=== PATIENT | female | born 1955 | race Caucasian/White ===

== ENCOUNTER 2018-08-21 15:00 | Outpatient (CLI) | payer MEDICARE, OTHER ==
[~2018-08-21] VITALS: Ht 152.4 cm; Wt 80.0 kg
[~2018-08-21 15:00] MED LIST: BYSTOLIC5 MG PO; LIDODERM PATCH TP; LOTREL 10 MG-401 CAP PO; NEURONTIN800 MG/TAB PO; OMEGA-3 FISH1200 MG PO; PAMELOR75 MG PO; PRILOSEC 20MG20 MG PO; PROVENTIL0.09 MG/A1 IH; REQUIP5 MG PO; RHINOCORT0.032 MG/1 NS; RT ADVAIR 228 DISKUS IH; UNABLE; VITAMIN B-1000 MCG/T PO; VITAMIN D32000 I1 PO; ZOCOR 40MG40 MG PO
[2018-08-21 16:29] VITALS: BP 152/99; PULSE 55; TEMP 99
== END 2018-08-21 17:00 | disposition home or self-care (01) ==
LOC: EUO 15:00
DX: M81.0 Age-related osteoporosis without current pathological fracture (principal)
CPT/HCPCS: J3489

== ENCOUNTER 2019-04-24 15:42 | Inpatient (IN) | payer MEDICARE, OTHER ==
[~2019-04-24] VITALS: Ht 149.9 cm; Wt 83.9 kg
[2019-04-24 16:33] LABS: BASO # 0.1 (0.0-0.2); BASO % 0.9 % (0.0-2.0); EOS # 0.1 (0.0-0.7); GRAN # 5.8 (1.4-6.5); GRAN % 65.3 % (42.2-75.2); HEMOGLOBIN 12.4 g/dl (12.5-16.0); LYMPH % 22.5 % (20.0-51.0); MEAN CELL VOLUME 95 fl (80.0-100.0); MEAN CORPUSCULAR HEMOGLOBIN 33 pg (27.0-31.0); MEAN CORPUSCULAR HGB CONC 35 g/dl (33.0-37.0); MEAN PLATELET VOLUME 11.3 fl (7.4-10.4); MONO # 0.9 (0.1-0.6); MONO % 9.9 % (1.7-9.3); PLATELET COUNT 216 K/mm3 (130-400); RED BLOOD COUNT 3.79 M/mm3 (4.10-5.30)
[2019-04-24 16:35] LABS: HEMATOCRIT 35.9 % (37.0-47.0)
[2019-04-24 16:44] LABS: ALANINE AMINOTRANSFERASE 19 U/L (9-52); ALBUMIN 4.3 gm/dL (3.5-5.0); ALKALINE PHOSPHATASE 107 U/L (50-136); ANION GAP 11 mmol/L (7-16); AST,SGOT 32 U/L (15-37); BILIRUBIN,TOTAL 0.6 mg/dL (0.0-1.0); BLOOD UREA NITROGEN 16 mg/dL (7-17); C-REACTIVE PROTEIN 2.9 mg/dL (0.0-0.9); CALCIUM 9.7 mg/dL (8.4-10.2); CARBON DIOXIDE 24 mmol/L (22-30); CHLORIDE 106 mmol/L (98-107); CREATININE, serum 1.03 (0.52-1.25); GLUCOSE 109 mg/dL (74-106); LIPASE 29 U/L (23-300); SODIUM 140 mmol/L (137-145); TOTAL PROTEIN 7.6 gm/dL (6.4-8.2)
[2019-04-24 16:56] LABS: TROPONIN-I < 0.012 ng/mL (0.000-0.035)
[2019-04-24 17:44] LABS: COLLECTION METHOD CLEAN CATCH
[2019-04-24 17:51] LABS: PH 5 (5-8); SQUAMOUS EPITHELIAL 0-2 /hpf; URINE APPEARANCE Clear; URINE BACTERIA Rare /hpf; URINE BILIRUBIN Negative (NEGATIVE); URINE BLOOD 1+ (NEGATIVE); URINE COLOR Yellow; URINE GLUCOSE Negative (NEGATIVE); URINE KETONE Negative (NEGATIVE); URINE LEUKOCYTE ESTERASE Negative (NEGATIVE); URINE NITRATE Negative (NEGATIVE); URINE PROTEIN(semi-quant) Negative (NEGATIVE); URINE RBC 0-2 /hpf; URINE UROBILINOGEN Negative (NEGATIVE)
[2019-04-24] MEDS ORDERED: CYMBALTA 60MG60 MG PO (19:02)
[2019-04-24] MEDS ORDERED: ALBUTEROL0.83 MG/ML IH (19:02)
[2019-04-24] MEDS ORDERED: RHINOCORT0.032 MG/1 NS (19:03)
[2019-04-24] MEDS ORDERED: GLUCOPHAGE XR750 MG PO (19:03)
[2019-04-24] MEDS ORDERED: LOTENSIN40 MG PO (19:04)
[2019-04-24] MEDS ORDERED: LOPRESSOR100 MG PO (19:04)
[2019-04-24] MEDS ORDERED: VENTOLIN0.09 MG IH (19:04)
--- NOTE | 2019-04-24 19:30 | NUR ---
Patient arrived to floor from ER. States pain 3/10, declines medication. Denies nausea. Will continue to monitor.
[2019-04-24 19:32] VITALS: BP 175/79; PULSE 76; TEMP 98.3
--- NOTE | 2019-04-24 23:05 | NUR ---
Dr. Weinstein notified of elevated BP. IVF decreased from 125ml/hr to 75ml/hr. Lung sounds clear, patient denies cough/increased SOB. Will continue to monitor.
[2019-04-24 23:48] VITALS: BP 158/81; PULSE 98; TEMP 97.1
[2019-04-25] VITALS (15 sets, daily range): BP systolic 134–163; BP diastolic 62–77; PULSE 54–80; TEMP 97.9–98.6
--- NOTE | 2019-04-25 04:30 | NUR ---
Patient in bed, awake. States pain 5/10. Prn pain medication given. Denies nausea. Denies further needs at this time. Will continue to monitor.
[2019-04-25 07:06] LABS: BASO # 0.1 (0.0-0.2); EOS # 0.2 (0.0-0.7); EOS % 2.7 % (0-4.0); GRAN # 4.3 (1.4-6.5); GRAN % 59.8 % (42.2-75.2); HEMOGLOBIN 11.8 g/dl (12.5-16.0); LYMPH # 1.9 (1.2-3.4); MEAN CELL VOLUME 97 fl (80.0-100.0); MEAN CORPUSCULAR HEMOGLOBIN 33 pg (27.0-31.0); MEAN CORPUSCULAR HGB CONC 34 g/dl (33.0-37.0); MEAN PLATELET VOLUME 11.2 fl (7.4-10.4); MONO # 0.7 (0.1-0.6); MONO % 9.1 % (1.7-9.3); PLATELET COUNT 204 K/mm3 (130-400); RED BLOOD COUNT 3.58 M/mm3 (4.10-5.30); REDCELL DISTRIBUTION WIDTH-CV 14.3 % (11.5-14.5)
[2019-04-25 07:16] LABS: HEMATOCRIT 34.8 % (37.0-47.0)
[2019-04-25 07:27] LABS: ALBUMIN 3.7 gm/dL (3.5-5.0); BILIRUBIN,TOTAL 0.5 mg/dL (0.0-1.0); CALCIUM 8.5 mg/dL (8.4-10.2); CREATININE, serum 0.89 (0.52-1.25); POTASSIUM 3.5 mmol/L (3.4-5.0); TOTAL PROTEIN 6.7 gm/dL (6.4-8.2)
--- NOTE | 2019-04-25 14:37 | NUR ---
Report given to Elenita KRAUSE
--- NOTE | 2019-04-25 15:03 | NUR ---
Resumed care from NELIDA Schuler. Pt is sleeping soundly in bed. Family is at bedside, denies any needs at this time.
--- NOTE | 2019-04-25 16:22 | NUR ---
Pt continues to rest in bed, given warm blanket upon requests. Denies any other needs, will monitor.
--- NOTE | 2019-04-25 18:20 | NUR ---
Pt is doing well post EGD. She is up to the restroom independently. Continues to deny needs.
--- NOTE | 2019-04-25 20:30 | NUR ---
Shift assessment complete. Patient in bed, awake. States pain 8/10 in abdomen. Prn pain medication given. Patient also states she is nauseous. Prn antiemetic given. Per pt request, sister called to come spend the night with her. Her sister, Coreen, is on her way. Denies further needs at this time. Will continue to monitor.
[2019-04-26] VITALS (7 sets, daily range): BP systolic 121–182; BP diastolic 53–88; PULSE 62–103; TEMP 97.4–98.6
--- NOTE | 2019-04-26 00:45 | NUR ---
Patient c/o pain when IV flushed. Blood return noted. IV removed and new IV started for pt comfort. IVF infusing, IV patent, pt denies pain at new site. Will continue to monitor.
--- NOTE | 2019-04-26 01:10 | NUR ---
Patient c/o chest pain, which resolved after a few minutes. Upon discussing intermittent chest pain with patient and her sister, she indicated she is very anxious about this hospital stay. She's upset/worried that they can't figure out what's wrong with her. VS stable, patient appears very anxious. Dr. Dhillon notified, prn ativan ordered. Ekg also ordered. Will notify RT.
--- NOTE | 2019-04-26 04:10 | NUR ---
Patient in bed, awake. States, pain 4/10 in abdomen, declines pain medication. Sister at bedside. Denies further needs at this time. Will continue to monitor.
--- NOTE | 2019-04-26 09:41 | NUR ---
Initial visit; Patient thanked Public Health Staff Nurse for looking in on her and offering God's blessings and for keeping her in Public Health Staff Nurse's prayers.
--- NOTE | 2019-04-26 14:51 | NUR ---
SURINDER met with patient and her sister to discuss discharge planning. Patient lives in [place] alone. She reports she is independent with her adls and does not use any DME. Patients PCP is Dr Ureña and she obtains her medications from [facility] in . Patient reports she has a DPOA complete but not with her. There are no anticipated discharge needs at this time.
--- NOTE | 2019-04-26 15:06 | NUR ---
Pt stable this afternoon. Pt's sister at bedside. Pt given Miralax per orders and pt refused MOM b/c it has made her sick in the past. Pt nausea managed with PRN Zofran. Pt states pain 0/10 at this time. Pt has call light in reach. Pt IV intact and no redness or infiltration noted.
--- NOTE | 2019-04-26 19:34 | NUR ---
Pt report given to Trish KRAUSE. Pt states no pain in abdomen but has some pain noted in BLE d/t neuropathy but pt denies need for pain med and states they are comfortable at this time. Pt has call light in reach and IV patent no infiltration noted.
--- NOTE | 2019-04-26 20:30 | NUR ---
Initial shift assessment done- states has some heartburn, denies abd pain at this time- denies nausea- offered Zofran but states not nauseated- has had some jello-will try a cracker and some diet soda, sitting at edge of bed, sister in room with patient
--- NOTE | 2019-04-26 22:25 | NUR ---
Wants the air mattress off her bed- states its so uncomfortable- removed,, anxious, will give her some Ativan at this time.
--- NOTE | 2019-04-27 00:05 | NUR ---
Did have 150cc emesis- Zofran given
[2019-04-27 03:56] VITALS: BP 146/73; PULSE 80; TEMP 97.9
--- NOTE | 2019-04-27 06:01 | NUR ---
has been resting fairly well for the past 3-4 hours- no more emesis
--- NOTE | 2019-04-27 07:45 | NUR ---
Report from Trish KRAUSE. Patient sleeping during report.
[2019-04-27 07:49] VITALS: BP 152/87; BP 163/78; PULSE 117; PULSE 65; TEMP 98; TEMP 98.5
[2019-04-27 09:51] LABS: CREATININE, serum 0.77 (0.52-1.25); POTASSIUM 4.3 mmol/L (3.4-5.0)
--- NOTE | 2019-04-27 11:18 | NUR ---
Follow-up visit; Patient states she is feeling better today and thanked [employer] for continuing to look in on her and keeping her in her prayers.
--- NOTE | 2019-04-27 11:39 | NUR ---
PT REPORTS SMALL BOWEL MOVEMENT AFTER SUPPOSITORY USED.
[2019-04-27 12:26] VITALS: BP 164/78; PULSE 64; TEMP 98.5
--- NOTE | 2019-04-27 15:25 | NUR ---
discharge instructions provided to patient and family questions solicited and answered. pt taken by wheel chair to front.
== END 2019-04-27 15:27 | disposition home or self-care (01) | DRG 392 ==
LOC: COL.ER 15:42 → MEDICAL 18:21
PROVIDERS: Emergency Medicine; Nurse Practitioner Family; ADMIT Surgery
PROC: 0DJ08ZZ Inspection of Upper Intestinal Tract, Via Natural or Artificial Opening Endoscopic (ICD-10-PCS; principal; 2019-04-25 13:00)
DX: K59.00 Constipation, unspecified (principal); K76.0 Fatty (change of) liver, not elsewhere classified; F17.210 Nicotine dependence, cigarettes, uncomplicated; E11.9 Type 2 diabetes mellitus without complications; J45.909 Unspecified asthma, uncomplicated; Z90.49 Acquired absence of other specified parts of digestive tract; Z90.710 Acquired absence of both cervix and uterus; Z88.2 Allergy status to sulfonamides; Z79.52 Long term (current) use of systemic steroids; Z79.84 Long term (current) use of oral hypoglycemic drugs
CPT/HCPCS: 99222; 99231-AI; G0378; J1170; J2060; J2250; J2405; J3010; J3480; J7030; Q9967

== ENCOUNTER → 2019-08-16 | Outpatient (CLI) | payer MEDICARE, OTHER ==
[~2019-08-16] MED LIST changes: +ALBUTEROL0.83 MG/ML IH; +CYMBALTA 60MG60 MG PO; +GLUCOPHAGE XR750 MG PO; +LOPRESSOR100 MG PO; +LOTENSIN40 MG PO; +VENTOLIN0.09 MG IH
== END ==
LOC: MC.RAD 07:39
DX: Z12.31 Encounter for screening mammogram for malignant neoplasm of breast (principal)

== ENCOUNTER 2019-09-03 14:13 | Emergency (ER) | payer MEDICARE, OTHER ==
[~2019-09-03] VITALS: Ht 152.4 cm; Wt 86.4 kg
[2019-09-03 14:52] LABS: BASO # 0.1 (0.0-0.2); BASO % 1.2 % (0.0-2.0); EOS # 0.1 (0.0-0.7); GRAN # 5.4 (1.4-6.5); GRAN % 65.4 % (42.2-75.2); HEMATOCRIT 38.4 % (37.0-47.0); HEMOGLOBIN 12.8 g/dl (12.5-16.0); LYMPH % 24.5 % (20.0-51.0); MEAN CELL VOLUME 96 fl (80.0-100.0); MEAN CORPUSCULAR HEMOGLOBIN 32 pg (27.0-31.0); MEAN CORPUSCULAR HGB CONC 33 g/dl (33.0-37.0); MEAN PLATELET VOLUME 10.9 fl (7.4-10.4); MONO # 0.6 (0.1-0.6); MONO % 7.8 % (1.7-9.3); PLATELET COUNT 248 K/mm3 (130-400); RED BLOOD COUNT 4.02 M/mm3 (4.10-5.30); REDCELL DISTRIBUTION WIDTH-CV 14.2 % (11.5-14.5)
[2019-09-03 15:08] LABS: ALBUMIN 4.6 gm/dL (3.5-5.0); BILIRUBIN,TOTAL 0.6 mg/dL (0.0-1.0); CALCIUM 10.1 mg/dL (8.4-10.2); CREATININE, serum 1.04 (0.52-1.25); POTASSIUM 3.4 mmol/L (3.4-5.0); TOTAL PROTEIN 8.4 gm/dL (6.4-8.2)
[2019-09-03 15:12] LABS: C-REACTIVE PROTEIN 2.4 mg/dL (0.0-0.9); LIPASE 26 U/L (23-300)
[2019-09-03 15:27] LABS: TROPONIN-I < 0.012 ng/mL (0.000-0.035)
[2019-09-03 16:27] LABS: ACETONE,SERUM NEGATIVE
[2019-09-03 17:15] LABS: COLLECTION METHOD CLEAN CATCH
[2019-09-03 17:22] LABS: PH 8 (5-8); SQUAMOUS EPITHELIAL 0-2 /hpf; URINE APPEARANCE Clear; URINE BACTERIA None Seen /hpf; URINE BILIRUBIN Negative (NEGATIVE); URINE BLOOD 1+ (NEGATIVE); URINE COLOR Straw; URINE GLUCOSE Negative (NEGATIVE); URINE KETONE Negative (NEGATIVE); URINE LEUKOCYTE ESTERASE Negative (NEGATIVE); URINE NITRATE Negative (NEGATIVE); URINE PROTEIN(semi-quant) Negative (NEGATIVE); URINE RBC 0-2 /hpf; URINE UROBILINOGEN Negative (NEGATIVE)
[2019-09-03] MEDS ORDERED: NORVASC 10MG10 MG PO (18:23)
[2019-09-03] MEDS ORDERED: ZOFRAN 4MG T4 MG/TAB PO (18:23)
[2019-09-03 18:50] VITALS: BP 186/81; PULSE 62; TEMP 97.2
== END 2019-09-03 18:50 | disposition home or self-care (01) ==
LOC: COL.ER 14:13
PROVIDERS: Emergency Medicine; Family Medicine
DX: I10 Essential (primary) hypertension (principal); R10.11 Right upper quadrant pain; R10.12 Left upper quadrant pain; R11.10 Vomiting, unspecified; E11.9 Type 2 diabetes mellitus without complications; J45.909 Unspecified asthma, uncomplicated; F17.210 Nicotine dependence, cigarettes, uncomplicated; E78.5 Hyperlipidemia, unspecified; Z90.49 Acquired absence of other specified parts of digestive tract; Z90.710 Acquired absence of both cervix and uterus; Z79.51 Long term (current) use of inhaled steroids; Z79.84 Long term (current) use of oral hypoglycemic drugs
CPT/HCPCS: J2405; J7030; Q9967

== ENCOUNTER 2019-11-05 15:00 | Outpatient (CLI) | payer MEDICARE, OTHER ==
[~2019-11-05] VITALS: Ht 152.4 cm; Wt 85.2 kg
--- NOTE | 2019-11-05 12:35 | NUR ---
CARDIOVERSION COMPLETE. PATIENT AWAKE AND TALKING. VS WNL. IN SR ON TELEMETRY. WILL CONTINUE TO MONITOR.
[~2019-11-05 15:00] MED LIST changes: +NORVASC 10MG10 MG PO; +ZOFRAN 4MG T4 MG/TAB PO
[2019-11-05 15:13] VITALS: BP 188/74; BP 192/69; PULSE 50; TEMP 98.2
[2019-11-05] MEDS ORDERED: ASPIRIN 81M81 MG/TA2 PO (15:34)
[2019-11-05] MEDS ORDERED: COZAAR100 MG PO (15:35)
[2019-11-05] MEDS ORDERED: HCTZ 25MG TAB25 MG PO (15:36)
[2019-11-05 15:57] VITALS: BP 158/81; PULSE 20
--- NOTE | 2019-11-05 15:59 | NUR ---
DR. STEELE'S OFFICE CALLED D/T ELEVATED BP ON ARRIVAL. SPOKE WITH DR. STEELE'S RN AND SHE RECOMMENDS FOR PATIENT TO TAKE BP AT HOME TWICE DAILY, KEEP RECORD OF IT AND BRING RECORD TO HER OFFICE VISIT ON 11/13/2019. THIS IS COMMUNICATED TO THE PATIENT AND SHE VERBALIZES UNDERSTANDING. BP IMPROVED BY THE END OF HER INFUSION TODAY. SHE HAS NO COMPLAINTS. PATIENT TOLERATED INFUSION WELL AND LEAVES [facility] VIA AMBULATION.
== END 2019-11-05 15:58 | disposition home or self-care (01) ==
LOC: EUO 15:00
DX: M81.0 Age-related osteoporosis without current pathological fracture (principal)
CPT/HCPCS: J3489

== ENCOUNTER 2020-08-21 10:30 | Day surgery (SDC) | payer MEDICARE, OTHER ==
[~2020-08-21] VITALS: Ht 152.4 cm; Wt 83.8 kg
[2020-08-21 08:41] VITALS: BP 137/72; PULSE 68; TEMP 98.3
[2020-08-21 10:25] VITALS: BP 127/70; PULSE 80
[2020-08-21 10:30] VITALS: BP 126/92; PULSE 82; TEMP 97.2
[~2020-08-21 10:30] MED LIST changes: +ALBUTEROL0.83 MG/ML INH; +ASPIRIN 81M81 MG/TA2 PO; +COZAAR100 MG PO; +HCTZ 25MG TAB25 MG PO; +JARDIANCE25 PO; +NATURAL MAGNES200 MG PO; +REQUIP2 MG PO; +RT ADVAIR 528 DISKUS IH; +TOPROL XL100 MG PO; +TYLENOL 500MG500 MG PO
[2020-08-21 10:45] VITALS: BP 133/69; PULSE 74
[2020-08-21 11:00] VITALS: BP 132/77; PULSE 80
== END 2020-08-21 11:06 | disposition home or self-care (01) ==
LOC: SDCO 10:30
DX: Z12.11 Encounter for screening for malignant neoplasm of colon (principal); D12.2 Benign neoplasm of ascending colon; E78.5 Hyperlipidemia, unspecified; F17.210 Nicotine dependence, cigarettes, uncomplicated; J45.909 Unspecified asthma, uncomplicated; G47.33 Obstructive sleep apnea (adult) (pediatric); K21.9 Gastro-esophageal reflux disease without esophagitis; E11.9 Type 2 diabetes mellitus without complications; I12.9 Hypertensive chronic kidney disease with stage 1 through stage 4 chronic kidney disease, or unspecified chronic kidney disease; N18.30 Chronic kidney disease, stage 3 unspecified; F32.9 Major depressive disorder, single episode, unspecified; Z90.710 Acquired absence of both cervix and uterus; Z79.84 Long term (current) use of oral hypoglycemic drugs
CPT/HCPCS: J2704; J7030

== ENCOUNTER 2020-11-06 15:00 | Outpatient (CLI) | payer MEDICARE, MEDICAID ==
[~2020-11-06] VITALS: Ht 152.4 cm; Wt 83.8 kg
[2020-11-06 16:08] VITALS: BP 114/73; PULSE 52; TEMP 97.8
== END 2020-11-06 16:45 | disposition home or self-care (01) ==
LOC: EUO 15:00
DX: M81.0 Age-related osteoporosis without current pathological fracture (principal)
CPT/HCPCS: J3489